=== PATIENT | female | born 1960 | race African-American/Black ===

== ENCOUNTER 2018-12-15 18:31 | Emergency (ER) | payer OTHER ==
--- OUTSIDE RECORDS SUMMARY | 2018-12-15 18:33 | XMS REPORT | Clinical Summary ---
:1960 Author Organization [facility] Address [address] [place] [address] Care Team Providers Name Role Phone Gareth Booth Abran Primary Care Provider Allergies No Known Allergies Medications Medication Sig Dispensed Refills Start Date End Date Status gabapentin Take by mouth as 0 Active (NEURONTIN) 100 MG directed 100 mg with capsule breakfast and lunch and 600 mg at HS.. metFORMIN Take 500 mg by mouth 0 Active (GLUCOPHAGE) 500 MG 2 (two) times daily tablet with breakfast and dinner. furosemide (LASIX) Take 20 mg by mouth 2 0 Active 20 MG tablet (two) times daily. metoprolol Take 25 mg by mouth 2 0 Active (LOPRESSOR) 25 MG (two) times daily. tablet allopurinol Take 300 mg by mouth 0 Active (ZYLOPRIM) 300 MG nightly . tablet aspirin 81 MG EC Take 81 mg by mouth 0 Active tablet nightly . allopurinol Take 100 mg by mouth 0 Active (ZYLOPRIM) 100 MG daily. tablet losartan-hydrochlor Take 1 tablet by 0 Active othiazide (HYZAAR) mouth daily. 100-25 mg per tablet HYDROcodone-acetami Take 1 tablet by 0 Active nophen (NORCO mouth every 4 (four) 10-325) 10-325 mg hours as needed for per tablet Pain . magnesium 250 mg Take 1 tablet by 0 Active Tab tablet mouth daily. iron, carbonyl Take 1 tablet by 0 Active (IRON) 65 mg Tab mouth daily. vitamin Take 1 tablet by 0 Active w/qjrdift-xvhm-cqnx mouth daily. te ( PLUS) 27 mg iron- 1 mg Tab biotin 5 mg Cap Take 1 capsule by 0 Active mouth nightly. docusate sodium Take 100 mg by mouth 0 Active (COLACE) 100 MG 2 (two) times daily. capsule thyroid, pork, 30 Take 30 mg by mouth 0 Active mg Tab daily. insulin aspart Inject subcutaneously 0 Active protamine-insulin 2 (two) times daily aspart (NOVOLOG MIX with breakfast and 70-30) 100 unit/mL dinner 50 units in AM (70-30) Soln and 30 units in PM . injection Active Problems Problem Noted Date Arthritis of midfoot 02/03/2017 DJD (degenerative joint disease), ankle and foot 08/30/2014 Social History Tobacco Use Types Packs/Day Years Used Date Never Smoker Smokeless Tobacco: Never Used Alcohol Use Drinks/Week oz/Week Comments No Sex Assigned at Date Recorded Not on file Job Start Date Occupation Industry Not on file Not on file Not on file Travel History Travel Start Travel End No recent travel history available. Last Filed Vital Signs Not on file Plan of Treatment Not on file Implants Implanted Type Area Photo Finisher Device Shelf Model / Serial / Lot Identifier Expiration Date Strip,Ilium Bicortical 22mm X 4.5cm - [id number] Bone Left: MUSCULOSKELETAL 03/10/2015 [id number] / Implanted: Qty: 1 on 08/30/2014 by Saurabh Chacon MD Foot TRANSPLANT [id number] / Tiss Live Bn Grft Dbx Pty 1cc [id number] - [id number] Bone Left: MUSCULOSKELETAL 06/16/2018 [id number] / Implanted: Qty: 1 on 02/03/2017 by Saurabh Chacon MD Foot TRANSPLANT FND [id number] / Screw,Locking Cortical Low Profile Ti 3.0x14mm - [id number] Fractu Left: ARTHREX [id number] / Implanted: Qty: 1 on 08/30/2014 by Saurabh Chacon MD re/Fix Foot / ation Screw,Cortical Low Profile Ti 3.0x20mm - [id number] Fractu Left: ARTHREX [id number] / Implanted: Qty: 1 on 08/30/2014 by Saurabh Chacon MD re/Fix Foot / ation Screw,Locking Cortical Low Profile Ti 3.0x16mm - [id number] Fractu Left: ARTHREX [id number] / Implanted: Qty: 2 on 08/30/2014 by Saurabh Chacon MD re/Fix Foot / ation Plate,Lapidus 4h - [id number] Fractu Left: ARTHREX [id number] / Implanted: Qty: 1 on 08/30/2014 by Saurabh Chacon MD re/Fix Foot / ation Screw,Locking Cortical Low Profile Ti 3.0x18mm - [id number] Fractu Left: ARTHREX [id number] / Implanted: Qty: 3 on 08/30/2014 by Saurabh Chacon MD re/Fix Foot / ation Screw,Cortical Locking Full Thread Ti 3.5x20mm - [id number] Fractu Left: ARTHREX [id number] / Implanted: Qty: 2 on 08/30/2014 by Saurabh Chacon MD re/Fix Foot / ation Screw,Cortical Locking Full Thread Ti 3.5x28mm - [id number] Fractu Left: ARTHREX [id number] / Implanted: Qty: 1 on 08/30/2014 by Saurabh Chacon MD re/Fix Foot / ation Screw,Cortical Low Profile Ti 3.5x24mm - [id number] Fractu Left: ARTHREX [id number] / Implanted: Qty: 1 on 08/30/2014 by Saurahb Chacon MD re/Fix Foot / ation Screw,Cortical Locking Full Thread Ti 3.5x22mm - [id number] Fractu Left: ARTHREX [id number] / Implanted: Qty: 1 on 08/30/2014 by Saurabh Chacon MD re/Fix Foot / ation Screw Left: ARTHREX [id number] / Implanted: Qty: 1 on 08/30/2014 by Saurabh Chacon MD Foot / Plate Left: ARTHREX [id number] / Implanted: Qty: 2 on 08/30/2014 by Saurabh Chacon MD Foot / Medial Column Fusion, Left Long Plate Left: [id number] / Implanted: Qty: 1 on 02/03/2017 by Saurabh Chacon MD Foot / 3.5x16 Non-Locking Screw Left: [id number] / Implanted: Qty: 1 on 02/03/2017 by Saurabh Chacon MD Foot / 3.5 X 22 Non Locking Screw Left: NAVYA [id number] / Implanted: Qty: 1 on 02/03/2017 by Saurabh Chacon MD Foot / 3.5 X 40 Non Locking Screw Left: NAVYA [id number] / Implanted: Qty: 1 on 02/03/2017 by Saurabh Chacon MD Foot / 3.5 X 30 Non Locking Screw Left: NAVYA [id number] / Implanted: Qty: 1 on 02/03/2017 by Saurabh Chacon MD Foot / 3.5 X 34 Non Locking Screw Left: NAVYA [id number] / Implanted: Qty: 1 on 02/03/2017 by Saurabh Chacon MD Foot / 3.5 X 20 Non Locking Screw Left: NAVYA [id number] / Implanted: Qty: 1 on 02/03/2017 by Saurabh Chacon MD Foot / 3.5 X 20 Locking Screw Left: NAVYA [id number] / Implanted: Qty: 1 on 02/03/2017 by Saurabh Chacon MD Foot / 3.5 X 16 Locking Screw Left: NAVYA [id number] / Implanted: Qty: 1 on 02/03/2017 by Saurabh Chacon MD Foot / Results Not on fileafter 12/14/2017 Insurance Payer Benefit Plan / Group Subscriber ID Type Phone Address [employer] - [employer] HMO POS QPOS xxxxxxxxx HMO/POS Advance Directives For more information, please contact:[address] [phone] Code Status Date Activated Date Inactivated Comments Full Code 02/03/2017 8:03 AM 02/03/2017 4:54 PM This code status was determined by: Patient Full Code 08/30/2014 7:46 AM 08/31/2014 5:45 PM This code status was determined by: Patient
--- OUTSIDE RECORDS SUMMARY | 2018-12-15 18:33 | XMS REPORT ---
:1960 Author Organization [facility] Address [address] [place] [address] Care Team Providers Name Role Phone JASON MINYD Ana M Unavailable Unavailable Problems This patient has no known problems. Allergies, Adverse Reactions, Alerts This patient has no known allergies or adverse reactions. Medications This patient has no known medications. Results Test Description Test Time Test Comments Text Results Atomic Results Result Comments POCT-GLUCOSE METER 2017-02-03 08:18:00 Test Item Value Reference Range Comments POC-GLUCOSE METER (BEAKER) (test 89 mg/dL 70-[address] [facility] [address] [place] [address] mikq=[id number]) [facility] [id number] BASIC METABOLIC [id number] 14:10:00 Test Item Value Reference Range Comments SODIUM (BEAKER) (test 140 meq/L 136-145 kcnk=449) POTASSIUM (BEAKER) (test 4.9 meq/L 3.5-5.1 iwnp=396) CHLORIDE (BEAKER) (test 102 meq/L 98-107 dpxf=788) CO2 (BEAKER) (test 27 meq/L 22-29 etmh=085) BLOOD UREA NITROGEN 13 mg/dL 7-21 (BEAKER) (test ymrd=224) CREATININE (BEAKER) (test 1.11 mg/dL 0.57-1.25 kzfl=397) GLUCOSE RANDOM (BEAKER) 434 mg/dL 70-105 (test ipcy=660) CALCIUM (BEAKER) (test 9.6 mg/dL 8.4-10.2 pbjd=022) EGFR (BEAKER) (test 61 mL/min/1.73 sq m ESTIMATED GFR IS NOT lxdg=4786) ACCURATE CREATININE CLEARANCE IN PREDICTING GLOMERULAR FILTRATION RATE. ESTIMATED GFR IS NOT APPLICABLE FOR DIALYSIS PATIENTS. [id number] 12:13:00 Test Item Value Reference Range Comments HEMOGLOBIN (BEAKER) (test ctig=948) 11.4 GM/DL 12.0-15.0
--- NOTE | 2018-12-15 19:59 | ER ---
Nurse's Notes [facility] Name: Ivet Shelton Age: 58 yrs Sex: Female : 1960 Arrival Date: 12/15/2018 Time: 18:32 Bed 30 Private MD: Gareth Booth Diagnosis: Laceration without foreign body of right great toe without damage to nail Presentation: 12/15 18:43 Presenting complaint: Patient states: right great toe laceration after trying to cut sv the skin off of her great toe with a knife. Reports that it has been bleeding since then and wouldn't stop. Transition of care: patient was not received from another setting of care. Complicating Factors: There are no complicating factors for this patient. Onset of symptoms was December 15, 2018. Care prior to arrival: None. 18:43 Method Of Arrival: Wheelchair sv 18:43 Acuity: CARIN 3 sv 20:06 Risk Assessment: Do you want to hurt yourself or someone else? Patient reports no rv desire to harm self or others. Initial Sepsis Screen: Does the patient meet any 2 criteria? No. Patient's initial sepsis screen is negative. Does the patient have a suspected source of infection? No. Patient's initial sepsis screen is negative. Historical: - Allergies: 18:44 No Known Allergies; sv - PMHx: 18:44 Diabetes - NIDDM; Gout; Hypertension; sv - PSHx: 18:44 Hysterectomy; sv - Immunization history:: Adult Immunizations up to date. - Family history:: not pertinent. - Social history:: Smoking status: unknown. - Ebola Screening: : Patient negative for fever greater than or equal to 101.5 degrees Fahrenheit, and additional compatible Ebola Virus Disease symptoms Patient denies exposure to infectious person Patient denies travel to an Ebola-affected area in the 21 days before illness onset. - Hospitalizations: : No recent hospitalization is reported. Screenin:05 Abuse screen: Denies threats or abuse. Denies injuries from another. Nutritional rv screening: No deficits noted. Tuberculosis screening: No symptoms or risk factors identified. Fall Risk None identified. Assessment: 20:04 General: Appears in no apparent distress. comfortable, Behavior is calm, cooperative. rv Pain: Complains of pain in left foot. Neuro: Level of Consciousness is awake, alert, obeys commands, Oriented to person, place, time, situation. Cardiovascular: Capillary refill < 3 seconds. Respiratory: Airway is patent. GI: No signs and/or symptoms were reported involving the gastrointestinal system. : No signs and/or symptoms were reported regarding the genitourinary system. EENT: No signs and/or symptoms were reported regarding the EENT system. Derm: Wound noted Right first toenail. Musculoskeletal: No signs and/or symptoms reported regarding the musculoskeletal system. Injury Description: Laceration is clean, 0.5 to 2.5 cm long, bleeding moderately. Vital Signs: 18:44 BP 193 / 79; Pulse 84; Resp 18; Temp 98; Pulse Ox 100% ; Weight 139.25 kg; Height 5 ft. sv 10 in. (177.80 cm); Pain 8/10; 18:44 Body Mass Index 44.05 (139.25 kg, 177.80 cm) sv ED Course: 18:32 Patient arrived in ED. as 18:32 Gareth Booth is Private Physician. as 18:44 Triage completed. sv 18:45 Arm band placed on. sv 19:22 Jason Hernandez MD is Attending Physician. rn 20:06 Patient has correct armband on for positive identification. Bed in low position. Call rv light in reach. Side rails up X 1. Adult w/ patient. Pulse ox on. NIBP on. 20:06 No provider procedures requiring assistance completed. Patient did not have IV access rv during this emergency room visit. Administered Medications: No medications were administered Outcome: 19:58 Discharge ordered by . rn 20:06 Discharged to home via wheelchair. rv 20:06 Condition: good 20:06 Discharge instructions given to patient, family, Instructed on discharge instructions, follow up and referral plans. medication usage, wound care, Demonstrated understanding of instructions, follow-up care, medications, wound care, Prescriptions given X 1. 20:07 Patient left the ED. rv Signatures: Kay Edgar RN Sharmin Bergeron Roman, MD MD rn Vicente, Ronaldo, RN RN rv
--- NOTE | 2018-12-15 19:59 | EDPHYS ---
Physician Documentation [facility] Name: Ivet Shelton Age: 58 yrs Sex: Female : 1960 Arrival Date: 12/15/2018 Time: 18:32 Bed 30 Private MD: Gareth Booth ED Physician Jason Hernandez HPI: 12/15 19:54 This 58 yrs old Black Female presents to ER via Wheelchair with complaints of rn Laceration - Toe. 19:54 The patient presents with an injury. The complaints affect the right great toe. Onset: rn The symptoms/episode began/occurred just prior to arrival. Severity of symptoms: At their worst the symptoms were mild, in the emergency department the symptoms have improved. The patient has not experienced similar symptoms in the past. Reports scraping skin off of toe with knife, accidentally cut off piece of skin, was bleeding, so came in. NO longer bleeding.. Historical: - Allergies: 18:44 No Known Allergies; sv - PMHx: 18:44 Diabetes - NIDDM; Gout; Hypertension; sv - PSHx: 18:44 Hysterectomy; sv - Immunization history:: Adult Immunizations up to date. - Family history:: not pertinent. - Social history:: Smoking status: unknown. - Ebola Screening: : Patient negative for fever greater than or equal to 101.5 degrees Fahrenheit, and additional compatible Ebola Virus Disease symptoms Patient denies exposure to infectious person Patient denies travel to an Ebola-affected area in the 21 days before illness onset. - Hospitalizations: : No recent hospitalization is reported. ROS: 19:54 Constitutional: Negative for fever, chills, and weight loss, MS/Extremity: + abrasion rn to right great toe Exam: 19:54 Constitutional: This is a well developed, well nourished patient who is awake, alert, rn and in no acute distress. MS/ Extremity: Pulses equal, no cyanosis. Neurovascular intact. + right great toe with distal partial avulsion/amputation of epidermal layer, no active bleeding, no bone exposed or palpable. Vital Signs: 18:44 BP 193 / 79; Pulse 84; Resp 18; Temp 98; Pulse Ox 100% ; Weight 139.25 kg; Height 5 ft. sv 10 in. (177.80 cm); Pain 8/10; 18:44 Body Mass Index 44.05 (139.25 kg, 177.80 cm) MDM: 19:22 Patient medically screened. rn 19:54 Differential diagnosis: abrasion, laceration. Data reviewed: vital signs, nurses notes, rn and as a result, I will discharge patient. Counseling: I had a detailed discussion with the patient and/or guardian regarding: the historical points, exam findings, and any diagnostic results supporting the discharge/admit diagnosis, the need for outpatient follow up, to return to the emergency department if symptoms worsen or persist or if there are any questions or concerns that arise at home. Special discussion: I discussed with the patient/guardian in detail that at this point there is no indication for admission to the hospital. It is understood, however, that if the symptoms persist or worsen the patient needs to return immediately for re-evaluation. ED course: No longer bleeding, distal partial amputation of epidermal layer, not suturable, applied surgicel, will dc home with local wound care and return precautions, as well as abx given is diabetic. . 12/15 19:50 Order name: Wound Care; Complete Time: 19:53 rn 12/15 19:50 Order name: Wound dressing; Complete Time: 19:53 rn Administered Medications: No medications were administered Disposition: 12/15/18 19:58 Discharged to Home. Impression: Laceration without foreign body of right great toe without damage to nail. - Condition is Stable. - Discharge Instructions: Delayed Wound Closure, Wound Care. - Prescriptions for Augmentin 875- 125 mg Oral Tablet - take 1 tablet by ORAL route every 12 hours for 10 days; 20 tablet. - Medication Reconciliation Form, Thank You Letter, Antibiotic Education, Prescription Opioid Use form. - Follow up: Private Physician; When: As needed; Reason: Recheck today's complaints, Re-evaluation by your physician. - Problem is new. - Symptoms have improved. Signatures: Kay Edgar RN RN Jason Hernandez MD MD rn Vicente, Ronaldo, RN RN rv Corrections: (The following items were deleted from the chart) 20:07 19:58 12/15/2018 19:58 Discharged to Home. Impression: Laceration without foreign body rv of right great toe without damage to nail. Condition is Stable. Forms are Medication Reconciliation Form, Thank You Letter, Antibiotic Education, Prescription Opioid Use. Follow up: Private Physician; When: As needed; Reason: Recheck today's complaints, Re-evaluation by your physician. Problem is new. Symptoms have improved. rn
== END 2018-12-15 20:07 | disposition home or self-care (01) ==
LOC: ER 18:31
DX: S91.111A Laceration without foreign body of right great toe without damage to nail, initial encounter (principal); W26.0XXA Contact with knife, initial encounter; E11.9 Type 2 diabetes mellitus without complications; I10 Essential (primary) hypertension
CPT/HCPCS: 99283